=== PATIENT | female | born 1955 | race Caucasian/White ===

== ENCOUNTER → 2025-10-21 | Outpatient (CLI) | payer MEDICARE, MEDICAID, SELFPAY ==
--- NOTE | 2025-10-21 15:00 | XR_ITS ---
Examination: MRI brain without intravenous contrast. Date and time of exam: October 21, 2025, 1532 hours INDICATIONS: Increasing memory loss dizziness double vision 1 year Technique: Multiple axial and sagittal images of the brain obtained. Siemens high-resolution 1.5 Geovanna short bore scanners utilized. Sagittal sections, T1-weighted, TR 500, TE 14, are performed. Axial sections proton-density and T2-weighted have been obtained. Inversion recovery axial images, TR 9, 260, TE 111, TI 2500. Diffusion weighted images, axial sections, TR 4800, TE 128, B value 1000 Axial sections, ADC map, TR 4800, TE 128 Findings: Enlargement of the sella turcica is not present. The optic chiasm and infundibular are not remarkable. Prepontine and interpeduncular cisterns are not enlarged. There is no localized enlargement of the medulla or alex. Fourth ventricle and cerebellar tonsils appear normal in position. No subacute area of hemorrhage density is seen. Mass in the cerebellopontine angle region is not evident. Globes symmetrical. Orbital musculature including medial lateral rectus muscles do not exhibit abnormality. Diffusion-weighted images demonstrate no focus of restricted diffusion. Increased white matter signal prominent Mass effect upon the ventricular system is not identified. Impression: Negative for acute hemorrhage mass effect or midline shift. No acute infarct. Prominent chronic microvascular white matter change
== END | disposition home or self-care (01) ==
PROVIDERS: PCP Physician Assistant; Referring Provider Physician Assistant; Visit Provider Physician Assistant
DX: R90.82 White matter disease, unspecified (principal)
CPT/HCPCS: 70551